=== PATIENT | male | born 1970 | race Caucasian/White ===

== ENCOUNTER 2016-10-03 23:10 | Emergency (ER) | payer OTHER ==
[~2016-10-03] VITALS: Ht 182.8 cm; Wt 181.4 kg
[~2016-10-03 23:10] MED LIST: BACTRIM DS 8001 TA1 PO; BENICAR HCT 251 TA1; DOXYCYCLINE HY100 M3 PO; FLEXERIL10 MG; FLEXERIL10 MG PO; HYDR25T PO; IBU-8800 MG PO; LISINOPRIL/HCTZ1 TA3 PO; NKHM; NORCO 5-325 TA1 EACH PO; NORVASC10 MG PO; PREDNISONE20 MG PO; ROBAXIN500 MG PO; SOMA350 MG PO; TRAMADOL HCL50 MG PO; VICODIN 5/500 505 MG PO
[2016-10-03] MEDS ORDERED: LISINOPRIL40 MG PO (23:18)
[2016-10-03 23:58] LABS: BASO # 0.1 10*3/uL (0.0-0.1); BASO % 0.5 % (0.0-1.0); EOS # 0.3 10*3/uL (0.0-0.4); EOS % 1.6 % (1.0-4.0); HEMATOCRIT 50.6 % (42.0-52.0); IG # 0.1 10*3/uL (0.0-0.1); LYMPH % 19.9 % (27.0-41.0); MEAN CELL VOLUME 85.8 fl (80.0-94.0); MEAN CORPUSCULAR HGB 28.8 pg (27.0-31.0); MEAN CORPUSCULAR HGB CONC 33.6 g/dl (33.0-37.0); MEAN PLATELET VOLUME 9.1 fl (9.6-12.3); MONO # 0.9 10*3/uL (0.1-1.0); MONO % 5.7 % (3.0-9.0); NEUT # 10.9 10*3/uL (2.3-7.9); PLATELET COUNT AUTOMATED 316 10*3/uL (130-400); RED CELL DISTRI WIDTH 13.3 % (0-14.5); WHITE BLOOD COUNT 15.2 10*3/uL (4.8-10.8)
[2016-10-04 00:14] LABS: BUN 16 mg/dl (7-24); CARBON DIOXIDE 31 mmol/L (21-32); CHLORIDE 102 mmol/L (98-107); EST GLOM FILT AFRICAN AMERICAN > 60 ml/min; GLUCOSE 129 mg/dL (65-99); POTASSIUM 3.7 mmol/L (3.5-5.1); SODIUM 139 mmol/L (136-145)
[2016-10-04 00:17] LABS: TROPONIN I < 0.015 ng/ml (<0.045)
[2016-10-04] MEDS ORDERED: LOPRESSOR50 M1 PO (02:40)
== END 2016-10-04 03:37 | disposition home or self-care (01) ==
LOC: ED 23:10
PROVIDERS: Emergency Medicine Emergency Medical Services
DX: I16.0 Hypertensive urgency (principal); F17.200 Nicotine dependence, unspecified, uncomplicated; Z91.030 Bee allergy status

== ENCOUNTER 2016-11-15 23:42 | Emergency (ER) | payer OTHER ==
[~2016-11-15] VITALS: Ht 182.8 cm; Wt 181.4 kg
[~2016-11-15 23:42] MED LIST changes: +LISINOPRIL40 MG PO; +LOPRESSOR50 M1 PO
[2016-11-15 23:49] VITALS: BP 180/96
== END 2016-11-16 01:33 | disposition home or self-care (01) ==
LOC: ED 23:42
DX: S63.601A Unspecified sprain of right thumb, initial encounter (principal); F17.200 Nicotine dependence, unspecified, uncomplicated; Z91.030 Bee allergy status; W50.0XXA Accidental hit or strike by another person, initial encounter; Y93.72 Activity, wrestling; Y92.9 Unspecified place or not applicable; Y99.9 Unspecified external cause status

== ENCOUNTER 2017-05-04 23:11 | Emergency (ER) | payer OTHER ==
[~2017-05-04] VITALS: Ht 182.8 cm; Wt 181.4 kg
[2017-05-04] MEDS ORDERED: CLINDAMYCIN HC300 MG PO (23:58)
== END 2017-05-05 00:08 | disposition left against medical advice (07) ==
LOC: ED 23:11
DX: N49.2 Inflammatory disorders of scrotum (principal); I10 Essential (primary) hypertension; F17.200 Nicotine dependence, unspecified, uncomplicated; Z79.899 Other long term (current) drug therapy; Z91.030 Bee allergy status

== ENCOUNTER 2019-05-31 08:18 | Inpatient (IN) | payer SELFPAY ==
[~2019-05-31] VITALS: Ht 183 cm; Wt 163.9 kg
[2019-05-31] VITALS (11 sets, daily range): BP systolic 140–184; BP diastolic 68–102
[~2019-05-31 08:18] MED LIST changes: +CLINDAMYCIN HC300 MG PO
[2019-05-31 08:56] LABS: BASO # 0.1 10*3/uL (0.0-0.1); BASO % 0.5 % (0.0-1.0); EOS # 0.2 10*3/uL (0.0-0.4); EOS % 1.5 % (1.0-4.0); LYMPH # 2.2 10*3/uL (1.3-4.4); LYMPH % 15.3 % (27.0-41.0); MEAN CELL VOLUME 87.5 fl (80.0-94.0); MEAN CORPUSCULAR HGB 28.6 pg (27.0-31.0); MEAN CORPUSCULAR HGB CONC 32.7 g/dl (33.0-37.0); MEAN PLATELET VOLUME 9.9 fl (9.6-12.3); MONO # 0.7 10*3/uL (0.1-1.0); MONO % 5.1 % (3.0-9.0); NEUT # 11.1 10*3/uL (2.3-7.9); NEUT % 77.2 % (47.0-73.0); PLATELET COUNT AUTOMATED 287 10*3/uL (130-400); RED BLOOD COUNT 5.94 10*6/uL (4.50-5.90); RED CELL DISTRI WIDTH 13.5 % (0-14.5); WHITE BLOOD COUNT 14.4 10*3/uL (4.8-10.8)
[2019-05-31 09:29] LABS: ACT PARTIAL THROMBO TIME 28.5 SECONDS (20.0-32.1); INTERNATIONAL NORM RATIO 0.9 (2.0-3.5)
[2019-05-31 09:35] LABS: ALBUMIN 3.4 gm/dl (3.1-4.5); ALKALINE PHOSPHATASE 157 U/L (45-117); BUN 13 mg/dl (7-24); CHLORIDE 103 mmol/L (98-107); CREATININE 1.19 mg/dL (0.70-1.30); POTASSIUM 3.6 mmol/L (3.5-5.1); SGOT/AST 12 IU/L (3-35); SGPT/ALT 24 U/L (12-78); SODIUM 137 mmol/L (136-145); TOTAL PROTEIN 7.2 gm/dL (6.4-8.2)
[2019-05-31 09:40] LABS: TROPONIN I 0.065 ng/ml (<0.045)
--- NOTE | 2019-05-31 09:40 | NUR ---
CHAVEZ @ 0.[address] SALGADO NOTIFIED.
--- NOTE | 2019-05-31 10:26 | NUR ---
ADMINISTERED MEDICATIONS ORDERED. PT DENIES ANY CHEST PAIN, REPORTS BREATHING TREATMENT WAS EFFECTIVE FOR HIS SOB. WILL CONTINUE TO MONITOR.
--- NOTE | 2019-05-31 10:32 | NUR ---
ST DEPRESSION NOTED IN LEAD 2, EKG ORDERED, FINDINGS REPORTED TO DR DILL, NO NEW ORDERS OBTAINED. PT DENIES ANY CHEST PAIN OR SOB AT THIS TIME.
--- NOTE | 2019-05-31 10:47 | NUR ---
A 49, admitted to , under the services of BRIGETTE Mccoy DO with a diagnosis of CHF, ELEVATED TROPONIN. Chief complaint is SOBM CHEST CONGESTION. Patient arrived via ambulatory from ER. Monitor applied. Initial assessment completed. Vital signs taken and recorded. BRIGETTE MCCOY DO notified of admission to the unit. Orders received. See assessment for past medical history, medications and allergies. Patient and/or family oriented to unit. [facility] visitation policy reviewed. Clothing/patient valuable form completed. HERLINDA ANGUIANO
--- NOTE | 2019-05-31 10:56 | NUR ---
MED REC UPDATED WITH PT AT BEDSIDE. STATES HE WAS ON ESIDREX BUT NOW REFUSES THIS AND STOPPED THIS A FEW WEEKS AGO. ALSO STATES HE WAS PREVIOUS PRESCRIBED METOPROLO BUT THIS WAS DISCONTINUED BY THE PT A FEW MONTHS AGO.
--- NOTE | 2019-05-31 11:02 | NUR ---
NOTIFIED OF BP 180/96. SAID HE WOULD LOOK AT THE CHART.
--- NOTE | 2019-05-31 11:49 | NUR ---
BP 182/88 FOLLOWING VASOTEC. AWARE. SAID HE WOULD LOOK AT HIS CHART AGAIN.
--- NOTE | 2019-05-31 12:19 | NUR ---
CONSULT FOR LEFT WITH GILL IN CARDIO. SAID SHE WOULD RELAY THE MSG.
--- NOTE | 2019-05-31 12:30 | NUR ---
LAB CALLED WITH CRITICAL TROPONIN OF 0.071. DR. FELTON NOTIFIED. MESSAGE ALSO LEFT FOR CARDIO REGARDING TROP RESULTS.
--- NOTE | 2019-05-31 12:53 | NUR ---
BP 180/86. INFORMED. NEW ORDER FOR APRESOLINE 5 REC'D SEE JUL. ALSO SAID TO NOTIFY CARDIO AND SEE IF LABATALOL IS OK TO GIVE.
--- NOTE | 2019-05-31 12:59 | NUR ---
NEW ORDER TO GIVE 10MG APRESOLINE NOW. SEE MAR.
--- NOTE | 2019-05-31 13:43 | NUR ---
NOTIFIED OF BP 170/68 FOLLOWING 10 OF APRESOLINE. SAID OK.
--- NOTE | 2019-05-31 15:21 | NUR ---
TROP 0.07 CALLED FROM LAB. NOTIFIED.
--- NOTE | 2019-05-31 16:56 | NUR ---
BP 175/82. notified.
--- NOTE | 2019-05-31 17:46 | NUR ---
BP 140/80 FOLLOWING APRESOLINE.
--- NOTE | 2019-05-31 17:50 | NUR ---
TROP 0.067. NOTIFIED.
--- NOTE | 2019-05-31 20:20 | NUR ---
BP 168/[address] STOCK CONTACTED AND INFORMED PATIENT WITH ELEVATED BP'S SINCE ADMISSION AND HAS ALREADY RECEIVED APRESOLINE X 3 AND VASOTEC, BP AGAIN TRENDING UP. PER DR STOCK, MONITOR
--- NOTE | 2019-05-31 21:00 | NUR ---
SLEEPING, AWAKENS EASILY. RESPIRATIONS EASY. LUNGS DIMINISHED, CLEAR. PULSE OX 96% RA. GEN EDEMA VS OBESITY, DECLINES TEDS. CALL LIGHT WITHIN REACH. NO VOICED COMPLAINTS.
--- NOTE | 2019-05-31 21:31 | NUR ---
24 HR chart check completed.
[2019-06-01] VITALS: BP 175/80
--- NOTE | 2019-06-01 | NUR ---
SLEEPING. NO DISTRESS NOTED. RESPIRATIONS EASY. VSS. CALL LIGHT WITHIN REACH.
--- NOTE | 2019-06-01 06:00 | NUR ---
SLEPT THROUGHOUT NIGHT WITH NO DISTRESS NOTED. RESPIRATIONS EASY. NPO STATUS MAINTAINED FOR TESTING. CALL LIGHT WITHIN REACH. NO VOICED COMPLAINTS THIS SHIFT
[2019-06-01 06:08] LABS: BASO # 0.1 10*3/uL (0.0-0.1); BASO % 0.5 % (0.0-1.0); EOS # 0.2 10*3/uL (0.0-0.4); EOS % 1.6 % (1.0-4.0); HEMATOCRIT 51.4 % (42.0-52.0); HEMOGLOBIN 16.9 g/dl (14.0-18.0); LYMPH # 1.9 10*3/uL (1.3-4.4); LYMPH % 16.3 % (27.0-41.0); MEAN CELL VOLUME 87.9 fl (80.0-94.0); MEAN CORPUSCULAR HGB 28.9 pg (27.0-31.0); MEAN CORPUSCULAR HGB CONC 32.9 g/dl (33.0-37.0); MEAN PLATELET VOLUME 9.7 fl (9.6-12.3); MONO # 0.7 10*3/uL (0.1-1.0); MONO % 6.1 % (3.0-9.0); NEUT # 8.7 10*3/uL (2.3-7.9); NEUT % 75.2 % (47.0-73.0); PLATELET COUNT AUTOMATED 268 10*3/uL (130-400); RED BLOOD COUNT 5.85 10*6/uL (4.50-5.90); RED CELL DISTRI WIDTH 13.6 % (0-14.5); WHITE BLOOD COUNT 11.6 10*3/uL (4.8-10.8)
[2019-06-01 06:27] LABS: ALBUMIN 2.9 gm/dl (3.1-4.5); ALKALINE PHOSPHATASE 115 U/L (45-117); BUN 12 mg/dl (7-24); CHLORIDE 108 mmol/L (98-107); CHOLESTEROL 151 mg/dL (<200); CREATININE 1.09 mg/dL (0.70-1.30); HDL CHOLESTEROL 26 mg/dl (40-60); LDL CHOLESTEROL 105 mg/dL (9-159); PHOSPHOROUS 2.8 mg/dL (2.5-4.9); POTASSIUM 3.3 mmol/L (3.5-5.1); SGOT/AST 14 IU/L (3-35); SGPT/ALT 22 U/L (12-78); SODIUM 142 mmol/L (136-145); TOTAL PROTEIN 6.4 gm/dL (6.4-8.2); TRIGLYCERIDES 102 mg/dl (<150); VLDL CHOLESTEROL 20 mg/dL (6-40)
[2019-06-01 08:00] VITALS: BP 170/98
[2019-06-01 08:13] LABS: VITAMIN D, 25-HYDROXY 14.8 ng/mL (30-100)
--- NOTE | 2019-06-01 09:00 | NUR ---
Cmo & President in to talk to patient. Patient states lives at home with alone. There are few steps in the home. Physician: axel hewitt Pharmacy: [facility] Home health services: none Patient's level of ADLs: INDEPENDENT Patient has working utilities: all working DME: none Follow-up physician's appointment after d/c: will be made by hospitalist nurse director upon discharge Does patient want to access PORTAL?: no Discharge plan discussed with patient, he lives at home alone, he is independent in adls and ambulation, he states he will return home when medically stable and denies any home needs, case management will follow. BELA NICHOLS
--- NOTE | 2019-06-01 09:20 | NUR ---
GAVE BP PILLS FOR BP 170/88.
--- NOTE | 2019-06-01 11:15 | NUR ---
INFORMED CONSENT OBTAINED FOR LEXISCAN NUCLEAR STRESS TEST WITH DR. BARRIENTOS. RESTING EKG SINUS TACHYCARDIA WITH A RESTING HR OF 102 WITH BP OF 190/100. LUNGS WITH DIMINISHED BS WITH SPO2 OF 96% ON NASAL O2 2L. PT COMPLETED A 1:00 LEXISCAN PROTOCOL RECEIVING LEXISCAN 0.4 MG IV OVER 10 SECONDS. HAD NO CHEST PAIN OR ANY EKG CHANGES. HAD C/O "ODD FEELING" THAT SUBSIDED IN RECOVERY. HAD A PEAK HR OF 118 WITH BP OF 188/94. LAST RECOVERY HR OF 113 WITH BP OF 194/98. AWAITING SCANNING IN STABLE CONDITION.
[2019-06-01 12:00] VITALS: BP 135/84; BP 171/88
[2019-06-01 16:00] VITALS: BP 176/96
--- NOTE | 2019-06-01 18:00 | NUR ---
IN TO PATIENTS ROOM TO TELL HIM AND HIS THE PLAN OF CARE, NEGATIVE STRESS TEST SO THE PT IS TO BE SENT TO [facility] TOMORROW TO GET A CATH DONE, AND IS TO BE NPO AFTER MIDNIGHT. THEY BOTH VERBALIZED AGREEMENT AND THAT THEY UNDERSTAND
--- NOTE | 2019-06-01 19:46 | NUR ---
DR BARRIENTOS CALLED TO VERIFY THAT PATIENT WILL BE TRANSPORTED FOR HEART CATH. PER DR BARRIENTOS EXCHANGE TROUBLE SHOOTER WILL CONTACT US IN THE MORNING.
[2019-06-01 20:00] VITALS: BP 179/97
--- NOTE | 2019-06-01 20:41 | NUR ---
PT LAYING IN BED AT THIS TIME. HE STATES THAT HE IS FEELING OKAY. RESPS ARE EASY AND NONLABORED. BED LOW, CALL LIGHT WITHIN REACH. WILL CONTINUE TO MONITOR.
[2019-06-02] VITALS: BP 153/58
[2019-06-02 06:25] LABS: BASO # 0.1 10*3/uL (0.0-0.1); BASO % 0.4 % (0.0-1.0); EOS # 0.2 10*3/uL (0.0-0.4); HEMATOCRIT 53.1 % (42.0-52.0); HEMOGLOBIN 17.2 g/dl (14.0-18.0); LYMPH # 2.2 10*3/uL (1.3-4.4); LYMPH % 18.1 % (27.0-41.0); MEAN CELL VOLUME 88.1 fl (80.0-94.0); MEAN CORPUSCULAR HGB 28.5 pg (27.0-31.0); MEAN CORPUSCULAR HGB CONC 32.4 g/dl (33.0-37.0); MEAN PLATELET VOLUME 9.5 fl (9.6-12.3); MONO # 0.8 10*3/uL (0.1-1.0); MONO % 6.9 % (3.0-9.0); NEUT # 8.8 10*3/uL (2.3-7.9); NEUT % 72.4 % (47.0-73.0); PLATELET COUNT AUTOMATED 284 10*3/uL (130-400); RED BLOOD COUNT 6.03 10*6/uL (4.50-5.90); RED CELL DISTRI WIDTH 13.7 % (0-14.5); WHITE BLOOD COUNT 12.2 10*3/uL (4.8-10.8)
[2019-06-02 07:20] LABS: CHLORIDE 102 mmol/L (98-107); SODIUM 140 mmol/L (136-145)
[2019-06-02 07:25] LABS: BUN 16 mg/dl (7-24); CREATININE 1.33 mg/dL (0.70-1.30)
[2019-06-02 08:00] VITALS: BP 158/98
[2019-06-02] MEDS ORDERED: ASPIRIN ADULT L81 M2 PO (09:21)
[2019-06-02] MEDS ORDERED: TRIAMTERENE & H1 CAP PO (09:21)
[2019-06-02] MEDS ORDERED: ATORVASTATIN CA40 M1 PO (09:21)
[2019-06-02] MEDS ORDERED: AMLODIPINE BESY10 MG PO (09:21)
[2019-06-02] MEDS ORDERED: METOPROLOL SUC100 M1 PO (09:21)
--- NOTE | 2019-06-02 09:41 | NUR ---
PATIENT BEING TRANSFERED TO [facility] CERTIFIED VETERINARY TECHNICIAN.
--- NOTE | 2019-06-02 11:12 | NUR ---
NURSE TO NURSE REPORT GIVEN TO PROPOSAL LEAD WRITER. PATIENT TAKEN BY AMBULANCE TO [facility] PROPOSAL LEAD WRITER.
== END 2019-06-02 11:00 | disposition other institution (70) | DRG 292 ==
LOC: ED 08:18 → EDHOLD 10:14 → 4E 10:14
PROVIDERS: Emergency Medicine; Family Medicine; Student in an Organized Health Care Education/Training Program; ADMIT Internal Medicine
PROC: 4A02XM4 Measurement of Cardiac Total Activity, External Approach (ICD-10-PCS; principal; 2019-06-01)
PROC: 3E073KZ Introduction of Other Diagnostic Substance into Coronary Artery, Percutaneous Approach (ICD-10-PCS; principal; 2019-06-01)
DX: I11.0 Hypertensive heart disease with heart failure (principal); R65.10 Systemic inflammatory response syndrome (SIRS) of non-infectious origin without acute organ dysfunction; E44.1 Mild protein-calorie malnutrition; I16.1 Hypertensive emergency; Z68.43 Body mass index [BMI] 50.0-59.9, adult; I25.9 Chronic ischemic heart disease, unspecified; I50.43 Acute on chronic combined systolic (congestive) and diastolic (congestive) heart failure; F17.219 Nicotine dependence, cigarettes, with unspecified nicotine-induced disorders; G47.33 Obstructive sleep apnea (adult) (pediatric); R73.9 Hyperglycemia, unspecified; E83.41 Hypermagnesemia; Z71.6 Tobacco abuse counseling; Z91.030 Bee allergy status; Z82.49 Family history of ischemic heart disease and other diseases of the circulatory system; Z83.3 Family history of diabetes mellitus; Z79.899 Other long term (current) drug therapy

== ENCOUNTER 2020-05-29 23:39 | Emergency (ER) | payer OTHER ==
[~2020-05-29] VITALS: Ht 182.8 cm; Wt 169.6 kg
[~2020-05-29 23:39] MED LIST changes: +AMLODIPINE BESY10 MG PO; +ASPIRIN ADULT L81 M2 PO; +ATORVASTATIN CA40 M1 PO; +METOPROLOL SUC100 M1 PO; +TRIAMTERENE & H1 CAP PO
[2020-05-30] MEDS ORDERED: IBUPROFEN600 MG PO (00:51)
== END 2020-05-30 01:38 | disposition home or self-care (01) ==
LOC: ED 23:39
DX: S93.402A Sprain of unspecified ligament of left ankle, initial encounter (principal); I11.0 Hypertensive heart disease with heart failure; I50.9 Heart failure, unspecified; F17.200 Nicotine dependence, unspecified, uncomplicated; Z91.030 Bee allergy status; Z79.899 Other long term (current) drug therapy; Z79.82 Long term (current) use of aspirin; X50.1XXA Overexertion from prolonged static or awkward postures, initial encounter; Y93.01 Activity, walking, marching and hiking; Y92.89 Other specified places as the place of occurrence of the external cause; Y99.8 Other external cause status

== ENCOUNTER 2020-10-24 16:36 | Emergency (ER) | payer OTHER ==
[~2020-10-24] VITALS: Ht 182.8 cm; Wt 171.9 kg
[~2020-10-24 16:36] MED LIST changes: +IBUPROFEN600 MG PO
[2020-10-24] MEDS ORDERED: METFORMIN HYD1000 MG PO (16:48)
[2020-10-24] MEDS ORDERED: CARVEDILOL25 MG PO (16:48)
== END 2020-10-24 18:28 | disposition home or self-care (01) ==
LOC: ED 16:36
DX: S20.211A Contusion of right front wall of thorax, initial encounter (principal); Z79.899 Other long term (current) drug therapy; Z91.030 Bee allergy status; W19.XXXA Unspecified fall, initial encounter; Y93.89 Activity, other specified; Y92.89 Other specified places as the place of occurrence of the external cause; Y99.8 Other external cause status

== ENCOUNTER 2022-01-26 15:44 | Emergency (ER) | payer OTHER ==
[~2022-01-26] VITALS: Ht 182.8 cm; Wt 112.5 kg
[~2022-01-26 15:44] MED LIST changes: +CARVEDILOL25 MG PO; +METFORMIN HYD1000 MG PO
[2022-01-26 16:19] LABS: BASO # 0.1 10*3/uL (0.0-0.1); BASO % 0.7 % (0.0-1.0); EOS # 0.4 10*3/uL (0.0-0.4); EOS % 3.5 % (1.0-4.0); HEMATOCRIT 50.2 % (42.0-52.0); LYMPH # 2.6 10*3/uL (1.3-4.4); LYMPH % 23.3 % (27.0-41.0); MEAN CELL VOLUME 86.1 fl (80.0-94.0); MEAN CORPUSCULAR HGB 29.3 pg (27.0-31.0); MEAN CORPUSCULAR HGB CONC 34.1 g/dl (33.0-37.0); MEAN PLATELET VOLUME 9.1 fl (9.6-12.3); MONO # 0.8 10*3/uL (0.1-1.0); MONO % 6.9 % (3.0-9.0); NEUT # 7.2 10*3/uL (2.3-7.9); NEUT % 65.3 % (47.0-73.0); PLATELET COUNT AUTOMATED 290 10*3/uL (130-400); RED BLOOD COUNT 5.83 10*6/uL (4.50-5.90); RED CELL DISTRI WIDTH 13.4 % (0-14.5)
[2022-01-26 16:36] LABS: ALKALINE PHOSPHATASE 118 U/L (45-117); BUN 18 mg/dl (7-24); CHLORIDE 105 mmol/L (98-107); CREATININE 1.24 mg/dL (0.70-1.30); POTASSIUM 3.2 mmol/L (3.5-5.1); SGOT/AST 11 IU/L (3-35); SGPT/ALT 19 U/L (12-78); SODIUM 138 mmol/L (136-145); TOTAL PROTEIN 6.6 gm/dL (6.4-8.2)
[2022-01-26 16:49] LABS: ACT PARTIAL THROMBO TIME 28.5 SECONDS (20.0-32.1); INTERNATIONAL NORM RATIO 0.9 (2.0-3.5)
== END 2022-01-26 18:45 | disposition home or self-care (01) ==
LOC: ED 15:44
PROVIDERS: Emergency Medicine
DX: R07.89 Other chest pain (principal); R53.83 Other fatigue; R14.3 Flatulence; E11.9 Type 2 diabetes mellitus without complications; I11.0 Hypertensive heart disease with heart failure; I50.9 Heart failure, unspecified; E44.1 Mild protein-calorie malnutrition; F17.210 Nicotine dependence, cigarettes, uncomplicated; Z79.899 Other long term (current) drug therapy